=== PATIENT | female | born 1960 | race Caucasian/White ===

== ENCOUNTER 2018-10-24 05:50 | Day surgery (SDC) | payer OTHER ==
[2018-10-24] MEDS ORDERED: LIDOCAINE 4% SOLUTION 50 ML BTL (07:24)
[2018-10-24] MEDS ORDERED: FENTAnyl 50 MCG/ML VIAL (08:19)
[2018-10-24] MEDS ORDERED: MIDAZOLAM 1 MG/ML 2 ML INJ ×2 (08:19)
== END 2018-10-24 12:18 | disposition home or self-care (01) ==
LOC: GIL 05:50
DX: Z12.11 Encounter for screening for malignant neoplasm of colon (principal); K57.31 Diverticulosis of large intestine without perforation or abscess with bleeding; K29.00 Acute gastritis without bleeding
CPT/HCPCS: 43239; 88305; 88312